=== PATIENT | male | born 1960 | race Caucasian/White ===

== ENCOUNTER → 2017-06-12 | Outpatient (CLI) | payer OTHER ==
[2017-06-12 10:07] LABS: BASO % 1 % (0-3); EOS % 3 % (0-3); HEMATOCRIT 46.8 % (39.0-53.0); HEMOGLOBIN 16.6 g/dL (13.0-17.5); LYMPH # 2.6 x10^3/uL (1.0-4.8); LYMPH % 34 % (24-48); MEAN CORPUSCULAR HEMOGLOBIN 31 pg (25-35); MEAN CORPUSCULAR HGB CONC 35 g/dL (31-37); MEAN CORPUSCULAR VOLUME 87 fL (79-100); MONO % 12 % (0-9); NEUT % 50 % (31-73); PLATELET COUNT 214 x10^3/uL (140-400); WHITE BLOOD COUNT 7.5 x10^3/uL (4.0-11.0)
[2017-06-12 10:20] LABS: ALBUMIN 3.9 g/dL (3.4-5.0); ALBUMIN/GLOBULIN RATIO 1.1 (1.0-1.7); CALCIUM 8.7 mg/dL (8.5-10.1); CREATININE 1.1 mg/dL (0.7-1.3); POTASSIUM 3.9 mmol/L (3.5-5.1); TOTAL PROTEIN 7.3 g/dL (6.4-8.2)
[2017-06-12 10:21] LABS: CHOLESTEROL/HDL RATIO 3.3
== END | disposition home or self-care (01) ==
LOC: LAB 09:42
PROVIDERS: ATTEND Internal Medicine
DX: Z12.5 Encounter for screening for malignant neoplasm of prostate (principal); Z00.01 Encounter for general adult medical examination with abnormal findings; G50.0 Trigeminal neuralgia; R53.81 Other malaise
CPT/HCPCS: 36415; 80053; 80061; 84443; 85027; G0103

== ENCOUNTER → 2017-12-31 | Outpatient (CLI) | payer OTHER ==
[2017-12-31 08:54] LABS: ADD MAN DIFF? NO
[2017-12-31 09:14] LABS: BASO % 1 % (0-3); EOS # 0.2 x10^3/uL (0.0-0.7); EOS % 3 % (0-3); HEMATOCRIT 49.1 % (39.0-53.0); HEMOGLOBIN 17.1 g/dL (13.0-17.5); LYMPH # 2.4 x10^3/uL (1.0-4.8); LYMPH % 30 % (24-48); MEAN CORPUSCULAR HEMOGLOBIN 31 pg (25-35); MEAN CORPUSCULAR HGB CONC 35 g/dL (31-37); MEAN CORPUSCULAR VOLUME 89 fL (79-100); MONO # 0.9 x10^3/uL (0.0-1.1); MONO % 11 % (0-9); NEUT # 4.5 x10^3uL (1.8-7.7); NEUT % 56 % (31-73); PLATELET COUNT 206 x10^3/uL (140-400); RED BLOOD COUNT 5.55 x10^6/uL (4.30-5.70); RED CELL DISTRIBUTION WIDTH 13.4 % (11.5-14.5); WHITE BLOOD COUNT 8.1 x10^3/uL (4.0-11.0)
[2017-12-31 09:26] LABS: ALBUMIN/GLOBULIN RATIO 1.1 (1.0-1.7); ALK PHOS 75 U/L (46-116); ALT (SGPT) 24 U/L (16-63); ANION GAP 12 (6-14); AST (SGOT) 16 U/L (15-37); BLOOD UREA NITROGEN 18 mg/dL (8-26); BUN/CREATININE RATIO 16 (6-20); CARBON DIOXIDE 26 mmol/L (21-32); CHLORIDE 105 mmol/L (98-107); CHOLESTEROL 183 mg/dL (0-200); CREATININE 1.1 mg/dL (0.7-1.3); GLUCOSE 133 mg/dL (70-99); HDLC 63 mg/dL (40-60); LDLC 105 mg/dL (0-100); NON-HDL CHOLESTEROL 120 mg/dL (0-129); POTASSIUM 3.8 mmol/L (3.5-5.1); SODIUM 143 mmol/L (136-145); TOTAL BILIRUBIN 1.3 mg/dL (0.2-1.0); TOTAL PROTEIN 7.7 g/dL (6.4-8.2); TRIGLYCERIDES 74 mg/dL (0-150); VLDLC 15 mg/dL (0-40)
[2017-12-31 09:29] LABS: BILIRUBIN,URINE NEGATIVE (NEG); CHOLESTEROL/HDL RATIO 2.9; CLARITY,URINE CLEAR; COLOR,URINE AMBER; GLUCOSE,URINE NEGATIVE (NEG); NITRITE,URINE NEGATIVE (NEG); PH,URINE 5.5; PROTEIN,URINE NEGATIVE (NEG-TRACE); UROBILINOGEN,URINE 0.2 mg/dL (0.2 mg/dL)
[2017-12-31 10:05] LABS: BACTERIA,URINE 0 /HPF (0-FEW); RBC,URINE 0 /HPF (0-2); SQUAMOUS EPITHELIAL CELL,UR FEW /LPF; WBC,URINE 0 /HPF (0-4)
[2017-12-31 20:10] LABS: HEMOGLOBIN A1C 5.4 % (4.8-5.6)
== END | disposition home or self-care (01) ==
LOC: LAB 08:27
DX: Z12.5 Encounter for screening for malignant neoplasm of prostate (principal); R73.01 Impaired fasting glucose; R79.89 Other specified abnormal findings of blood chemistry
CPT/HCPCS: 36415; 80053; 80061; 81001; 83036; 84443; 85025; G0103

== ENCOUNTER 2018-04-28 08:37 | Emergency (ER) | payer OTHER ==
[2018-04-28] MEDS: DIPHTH,PERTUSS(ACELL),TET TOX 0.5 ML DISP.SYRIN. VAX IM (09:51)
[2018-04-28] MEDS: ONDANSETRON PF 4 MG/2 ML VIAL. IV (11:15)
[2018-04-28] MEDS: MORPHINE SULFATE 10 MG/ML VIAL. IV (11:15)
[2018-04-28 11:46] LABS: ADD MAN DIFF? NO
[2018-04-28 11:48] LABS: BASO % 0 % (0-3); EOS # 0.2 x10^3/uL (0.0-0.7); EOS % 2 % (0-3); HEMATOCRIT 46.1 % (39.0-53.0); HEMOGLOBIN 16.1 g/dL (13.0-17.5); LYMPH # 2.5 x10^3/uL (1.0-4.8); LYMPH % 26 % (24-48); MEAN CORPUSCULAR HEMOGLOBIN 31 pg (25-35); MEAN CORPUSCULAR HGB CONC 35 g/dL (31-37); MEAN CORPUSCULAR VOLUME 89 fL (79-100); MONO # 1.2 x10^3/uL (0.0-1.1); MONO % 13 % (0-9); NEUT # 5.6 x10^3uL (1.8-7.7); NEUT % 59 % (31-73); PLATELET COUNT 210 x10^3/uL (140-400); RED BLOOD COUNT 5.19 x10^6/uL (4.30-5.70); RED CELL DISTRIBUTION WIDTH 13.4 % (11.5-14.5); WHITE BLOOD COUNT 9.5 x10^3/uL (4.0-11.0)
[2018-04-28 11:58] LABS: ANION GAP 9 (6-14); BLOOD UREA NITROGEN 23 mg/dL (8-26); CALCIUM 9.1 mg/dL (8.5-10.1); CARBON DIOXIDE 27 mmol/L (21-32); CHLORIDE 105 mmol/L (98-107); GFR 76.7; GLUCOSE 91 mg/dL (70-99); SODIUM 141 mmol/L (136-145)
[2018-04-28] MEDS ORDERED: CONTRAST GIVEN. MC (12:00)
[2018-04-28] MEDS ORDERED: IOHEXOL 300 MG/ML 100ML VIAL. IV (12:30)
[2018-04-28] MEDS: IOHEXOL 300 MG/ML 100ML VIAL. IV (12:35)
== END 2018-04-28 14:17 | disposition home or self-care (01) ==
LOC: ER 14:17
DX: S22.42XA Multiple fractures of ribs, left side, initial encounter for closed fracture (principal); S22.000A Wedge compression fracture of unspecified thoracic vertebra, initial encounter for closed fracture; K86.9 Disease of pancreas, unspecified; V29.40XA Motorcycle driver injured in collision with unspecified motor vehicles in traffic accident, initial encounter; Y93.89 Activity, other specified; Y99.8 Other external cause status; Y92.488 Other paved roadways as the place of occurrence of the external cause
CPT/HCPCS: 36415; 71101; 71260; 73030; 74177; 80048; 85025; 90471; 90715; 99285-25; Q9967

== ENCOUNTER → 2018-04-30 | Outpatient (CLI) | payer OTHER ==
[2018-05-01 14:28] LABS: CA 19-9 11 U/mL (0-35)
== END | disposition home or self-care (01) ==
LOC: LAB 14:58
DX: K86.9 Disease of pancreas, unspecified (principal)
CPT/HCPCS: 36415; 86301

== ENCOUNTER → 2018-05-08 | Outpatient (CLI) | payer OTHER ==
[2018-05-08] MEDS: GADOBUTROL 10 MMOL/10 ML VIAL IV (08:56)
== END | disposition home or self-care (01) ==
LOC: KCIC MRI 07:45
DX: Z13.5 Encounter for screening for eye and ear disorders (principal); K86.89 Other specified diseases of pancreas
CPT/HCPCS: 70030; 74182; A9585

== ENCOUNTER → 2019-06-06 | Outpatient (CLI) | payer OTHER ==
[2018-04-28 08:47] VITALS: BP 142/81
[~2019-06-06] MED LIST: CYCL10TA2 PO; HYDR-3164 PO; NAPR-514 PO
--- NOTE | 2019-06-06 14:15 | RAD ---
Examination: MRCP WO CONTRAST History: Abnormal MRCP on 05/08/2018. Abnormal pancreatic finding on 04/28/2018. Follow up. Comparison/Correlation: 05/08/2018 MRCP without and with contrast, 04/28/2018 CT chest abdomen pelvis with contrast Findings: Multiplanar, multisequence images of the upper abdomen according to MRCP protocol were obtained without contrast. MIP images provided. Fatty infiltration liver is present diffusely. Spleen, adrenal glands, and kidneys are unremarkable. Gallbladder fossa is normal. Common bile duct is unremarkable. Pancreatic ductal diameter is normal. At the distal pancreatic tail, there is a 1.1 cm diameter fluid signal intensity structure is present. There is no pancreatic divisum identified. 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 Electronically signed by: Yraiel Barnard MD (06/06/2019 2:12 PM) [facility]
== END | disposition home or self-care (01) ==
LOC: MRI 09:55
PROVIDERS: ATTEND Internal Medicine Gastroenterology
DX: K76.0 Fatty (change of) liver, not elsewhere classified (principal); K86.2 Cyst of pancreas
CPT/HCPCS: 74181